=== PATIENT | male | born 1990 | race Caucasian/White ===

== ENCOUNTER 2017-01-27 10:11 | Emergency (ER) | payer OTHER ==
--- NOTE | ~2017-01-27 | CT71 ---
[facility] A Service of [facility] RADIOLOGY TEXT RESULTS PATIENT: ADAM MOTTA LOCATION: SED : 89 UNIT #: [id number] AGE: [address]: Tiara Franklin MD SEX: M ORDER DR: [id number] [place] [address] [id number] E MR#: [id number] Acc #: [id number] NAME: ADAM MOTTA : 1990 SEX: M STUDY DATE/TIME: 01/27/2017 12:05 UNIT: SED ROOM: STUDY DESCRIPTION: CT Head Wo Contrast Attending Physician: Tiara Franklin M.D. Ordering Physician: Tiara Franklin M.D. Primary Care Physician: Miki Iglesias M.D. MEDICAL IMAGING REPORT This report is preliminary unless electronic signature is present. EXAM CT head without contrast 01/27/2017 HISTORY 26-year-old male with congregation region headache, progressively getting worse for the past year. Syncopal episode today. Flashing light sensation. "Brain fog". COMPARISON None. TECHNIQUE This CT exam was performed with one or more of the following radiation dose reduction techniques: automatic exposure control, adjustment of mA and/or kV according to patient size, and iterative reconstruction. FINDINGS Axial noncontrast images were obtained from the skull base to the vertex. Ventricular size and configuration are normal. There is no evidence of acute infarct or hemorrhage. There are no extraaxial fluid collections. No mass lesion or mass effect is seen. There are no skull fractures. IMPRESSION Normal noncontrast head CT. Dictated by... Umu Escalante M.D. THIS IS AN ELECTRONICALLY VERIFIED REPORT Umu Escalante M.D. at 01/29/2017 2:17 PM [facility] A Service [facility] RADIOLOGY TEXT RESULTS PATIENT: ADAM MOTTA LOCATION: SED : 89 UNIT #: [id number] AGE: [address]: Tiara Franklin MD SEX: M ORDER DR: Yue TD: 01/27/2017 18:27 JOB #: [id number] MEDICAL IMAGING REPORT Page 1 of 1
--- NOTE | ~2017-01-27 | CT17 ---
[facility] A Service of [facility] RADIOLOGY TEXT RESULTS PATIENT: ADAM MOTTA LOCATION: SED : [birth year] UNIT #: [id number] AGE: [address]: Tiara Franklin MD SEX: M ORDER DR: [id number] [address] [address] [id number] E MR#: [id number] Acc #: [id number] NAME: ADAM MOTTA : 1990 SEX: M STUDY DATE/TIME: 01/27/2017 12:08 UNIT: SED ROOM: STUDY DESCRIPTION: CT Angio Head Attending Physician: Tiara Franklin M.D. Ordering Physician: Tiara Franklin M.D. Primary Care Physician: Miki Iglesias M.D. MEDICAL IMAGING REPORT This report is preliminary unless electronic signature is present. EXAM CT angiography head/neck, 01/27/2017 HISTORY Headache. Headache temporal area, syncope today; flashing light, progressive for 1 year, brain fog; seen neurologist in March. TECHNIQUE CT angiography neck/head performed with intravenous administration 100 mL Isovue-370. Multiple three-dimensional reconstructions performed through the vascular structures. This CT exam was performed with one or more of the following radiation dose reduction techniques: Automatic exposure control, adjustment of mA and/or kV according to patient size, and iterative reconstruction. No prior vascular imaging for comparison. Comparison to CT head performed earlier on same date, which showed no acute abnormality. FINDINGS The postcontrast images of brain show no enhancing parenchymal lesion. No intra- or extraaxial mass effect. No clear indication of regional hypoperfusion. Ventricles, cisterns, sulci normal in size and contour. Visualized intraorbital soft tissues, nasopharyngeal, oropharyngeal, pharyngeal mucosal retropharyngeal spaces, larynx, subglottic airway unremarkable. Residual thymic tissue in superior mediastinum. The lung apices are clear. Visualized thyroid, submandibular, parotid glands unremarkable. Bony structures unremarkable. Visualized pulmonary arteries unremarkable. Study not tailored for assessment of pulmonary arteries. Visualized aortic arch normal. Great vessel origins are patent. The bilateral vertebral arteries are patent and codominant throughout their course. They each contribute to the basilar artery, which appears widely patent. The bilateral posterior STS. [facility] A Service of [facility] RADIOLOGY TEXT RESULTS PATIENT: ADAM MOTTA LOCATION: SED : 89 UNIT #: [id number] AGE: [address]: Tiara Franklin MD SEX: M ORDER DR: cerebral arteries are patent. They appear of normal caliber. No posterior communicating arteries are clearly identified. No posterior circulation aneurysm, vascular cutoff, AV shunting or embolic phenomenon suggested. The bilateral common carotid arteries are patent. The cervical internal and external carotid arteries are patent. Study degraded by motion artifact, but there is no evidence of hemodynamically significant luminal narrowing using criteria based on NASCET criteria. The bilateral cavernous carotid arteries are patent. No anterior circulation aneurysm, vascular cutoff, embolic phenomenon or AV shunting. Bilateral anterior and middle cerebral arteries are patent. There is an anterior communicating artery. Major dural venous sinuses are patent. IMPRESSION 1. No intracranial aneurysm, vascular cutoff, embolic phenomenon or AV shunting is seen. There is an anterior communicating artery. Posterior communicating arteries not visualized. There is no clear indication of regional hypoperfusion in the brain. 2. Bilateral codominant vertebral arteries widely patent. 3. There is no indication of cervical internal carotid artery hemodynamically significant narrowing using NASCET criteria. 4. Small amount of residual thymic tissue in the partially visualized superior mediastinum. No acute soft tissue abnormality seen in the neck or upper mediastinum. Visualized pulmonary parenchyma is clear. See remainder of incidental findings in body of report above. Dictated by... David Santiago M.D. THIS IS AN ELECTRONICALLY VERIFIED REPORT David Santiago M.D. at 01/28/2017 5:40 PM JOSEF/nyla TD: 01/27/2017 19:57 JOB #: [id number] MEDICAL IMAGING REPORT Page 1 of 1
--- NOTE | ~2017-01-27 | CT23 ---
[facility] A Service of [facility] RADIOLOGY TEXT RESULTS PATIENT: ADAM MOTTA LOCATION: SED : [birth year] UNIT #: [id number] AGE: [address]: Tiara Franklin MD SEX: M ORDER DR: [id number] [place] [address] [id number] E MR#: [id number] Acc #: [id number] NAME: ADAM MOTTA : 1990 SEX: M STUDY DATE/TIME: 01/27/2017 12:08 UNIT: SED ROOM: STUDY DESCRIPTION: CT Angio Neck Attending Physician: Tiara Franklin M.D. Ordering Physician: Tiara Franklin M.D. Primary Care Physician: Miki Iglesias M.D. MEDICAL IMAGING REPORT This report is preliminary unless electronic signature is present. EXAM CT angiography neck, 01/27/2017 HISTORY Headache. Headache temporal area, syncope today; flashing light, progressive for 1 year, brain fog; seen neurologist in March. FINDINGS Please see [facility]A ANGIO HEAD report for combined text results. Dictated by... David Santiago M.D. THIS IS AN ELECTRONICALLY VERIFIED REPORT David Santiago M.D. at 01/28/2017 5:40 PM [place] TD: 01/27/2017 20:01 JOB #: [id number] MEDICAL IMAGING REPORT Page 1 of 1
[~2017-01-27 10:11] MED LIST: ATIVAN PO; BACTRIM DS TABL1 TA1 PO; CIPRO PO; DEXILANT60 MG PO; KEFLEX250 MG/5 M PO; LORTAB 7.5-5001 TAB PO; NO MEDICATIONS; OMEPRAZOLE40 M1 PO; PAXIL PO; PHENERGAN25 MG PO; PRILOSEC PO; PRILOSEC20 M1 PO; PRILOSEC40 MG PO; PROMETHAZINE HC25 MG PO; TYLENOL #3 PO; Z PACK; ZOFRAN; ZOFRAN ODT4 MG PO
[2017-01-27 12:03] LABS: BASOPHIL# 0.1 X10e3 (0-0.3); EOSINOPHIL# 0.1 X10e3 (0-0.7); EOSINOPHIL% 1.5 % (0.0-7.0); HEMOGLOBIN 16.4 gm/dL (13.0-16.0); LYMPHOCYTE# 1.9 X10e3 (1.0-3.5); LYMPHOCYTE% 22.2 % (17.0-45.0); MEAN CELL VOLUME 89.5 FL (83-96); MEAN CORPUSCULAR HEMOGLOBIN 31.2 PG (28-34); MEAN CORPUSCULAR HGB CONC 34.9 g/dL (30-36); MEAN PLATELET VOLUME 8.5 FL (6.5-11.5); MONOCYTE# 0.5 X10e3 (0-1.0); MONOCYTE% 6.2 % (3.0-12.0); NEUTROPHIL# 5.9 X10e3 (1.5-7.1); NEUTROPHIL% 69.1 % (40-75); PLATELET COUNT 207 X10e3 (140-420); RED BLOOD COUNT 5.26 X10e (3.90-5.60); RED CELL DISTRIBUTION WIDTH 12.6 % (11.0-15.5); WHITE BLOOD COUNT 8.5 X10e3 (4.0-10.5)
[2017-01-27 12:04] LABS: DIFF IND NO
[2017-01-27 12:18] LABS: ALBUMIN SERUM 4.1 g/dL (3.5-5.0); BILIRUBIN, DIRECT 0.1 mg/dL (0.0-0.2); BILIRUBIN,INDIRECT 0.5 mg/dL (0.0-0.9); BILIRUBIN,TOTAL 0.6 mg/dL (0.2-2.0); BUN/CREATININE RATIO 7.77; CALCIUM SERUM 8.9 mg/dL (8.4-10.2); CREATININE SERUM 0.9 mg/dL (0.6-1.4); GLOM FILT RATE Estimated 116.6 mL/min (>60); PROTEIN TOTAL SERUM 6.5 g/dL (6.0-8.3)
== END 2017-01-27 14:09 | disposition home or self-care (01) ==
LOC: SED 10:11
PROVIDERS: Emergency Medicine
DX: R51 Headache (principal); R55 Syncope and collapse; K21.9 Gastro-esophageal reflux disease without esophagitis; R00.2 Palpitations; F32.9 Major depressive disorder, single episode, unspecified; F41.9 Anxiety disorder, unspecified; F17.210 Nicotine dependence, cigarettes, uncomplicated; Z90.49 Acquired absence of other specified parts of digestive tract; Z88.1 Allergy status to other antibiotic agents; Z88.0 Allergy status to penicillin
CPT/HCPCS: 36415; 70450; 70496; 70498; 80048; 80076; 85025; 96361; 96374; 96375; 99284; J1100; J1200; J1885; J2765; Q9967